=== PATIENT | male | born 1990 | race Caucasian/White ===

== ENCOUNTER 2018-12-12 03:43 | Emergency (ER) | payer OTHER ==
[~2018-12-12] VITALS: Ht 180.3 cm; Wt 78.6 kg
[2018-12-12] MEDS ORDERED: MORPHINE SULFATE 4 MG/ML, 1ML IVPush PRN (04:30)
[2018-12-12] MEDS ORDERED: KETOROLAC 30 MG/1 ML IVPush ONE (04:30)
[2018-12-12] MEDS ORDERED: ONDANSETRON 2MG/ML, 2ML IVPush ONE (04:30)
[2018-12-12 04:41] LABS: BASOPHILS # (AUTO) 0.04 x10^3/uL (0-0.1); BASOPHILS % (AUTO) 0 % (0-1); EOSINOPHILS # (AUTO) 0.09 x10^3/uL (0-0.4); EOSINOPHILS % (AUTO) 1 % (1-7); LYMPHOCYTES # (AUTO) 1.83 x10^3/uL (1-3.4); LYMPHOCYTES % (AUTO) 19 % (22-44); MD NO; MEAN CORPUSCULAR HEMOGLOBIN 32.4 pg (27.5-34.5); MEAN CORPUSCULAR HGB CONC 35.1 g/dL (33.2-36.2); MEAN CORPUSCULAR VOLUME 92.3 fL (81-97); MEAN PLATELET VOLUME 7.8 fL (7.4-10.4); MONOCYTES # (AUTO) 0.49 x10^3/uL (0.2-0.8); MONOCYTES % (AUTO) 5 % (2-9); NEUTROPHILS % (AUTO) 74 % (42-75); PLATELET COUNT 218 x10^3/uL (130-400); RED BLOOD COUNT 4.49 x10^6/uL (4.38-5.82); RED CELL DISTRIBUTION WIDTH 11.9 % (9.4-14.8)
[2018-12-12] MEDS ORDERED: KETOROLAC 30 MG/1 ML ONE (04:44)
[2018-12-12] MEDS ORDERED: MORPHINE SULFATE 4 MG/ML, 1ML ONE (04:44)
--- NOTE | 2018-12-12 04:45 | NUR ---
MICHELLE RN: IV ESTABLISHED. PT MEDICATED PER EMAR. 5 RIGHTS ADDRESSED.
[2018-12-12 04:50] LABS: ALANINE AMINOTRANSFERASE 58 U/L (12-78); ALBUMIN 4.1 g/dL (3.4-5.0); ANION GAP 10 mmol/L (5-15); CALCIUM 9.1 mg/dL (8.5-10.1); CHLORIDE 109 mmol/L (98-107); CREATININE 1.03 mg/dL (0.7-1.3)
[2018-12-12 04:53] LABS: ALKALINE PHOSPHATASE 56 U/L (45-117); BILIRUBIN,TOTAL 0.3 mg/dL (0.2-1.0); TOTAL PROTEIN 7.3 g/dL (6.4-8.2)
[2018-12-12] MEDS ORDERED: ONDANSETRON 2MG/ML, 2ML ONE (04:53)
--- NOTE | 2018-12-12 05:00 | NUR ---
PT TO CT.
[2018-12-12] MEDS ORDERED: SUMATRIPTAN PO (05:19)
[2018-12-12] MEDS ORDERED: TOPIRAMATE PO (05:19)
[2018-12-12] MEDS ORDERED: PROMETHAZINE PO (05:19)
[2018-12-12] MEDS ORDERED: VARE1TAB21 PO (05:19)
--- NOTE | 2018-12-12 05:19 | NUR ---
PT BACK FROM CT. PT ON VITALS MONITORS. PT IN [facility] GOWN. PT AWARE OF NEED FOR URINE SAMPLE. CUP AT BEDSIDE. CALL LIGHT WITHIN REACH.
--- NOTE | 2018-12-12 06:30 | NUR ---
PT ABLE TO PROVIDE URINE SAMPLE, PT DID NOT WANT STRAIGHT CATH. URINE SENT TO LAB.
[2018-12-12 06:49] LABS: MICROSCOPIC AUTO
[2018-12-12 06:51] LABS: CULTURE INDICATED? NO
--- NOTE | 2018-12-12 07:06 | NUR ---
BEDSIDE REPORT TO YUDI LANG
--- NOTE | 2018-12-12 07:15 | NUR ---
REPORT FROM ALEXIA LANG.
[2018-12-12 08:01] VITALS: BP 100/64
--- NOTE | 2018-12-12 08:01 | NUR ---
PT IS RESTING IN BED, WITH EYES CLOSED, RESPIRATIONS EQUAL AND NON LABORED. NAD. PT IS CONNECTED TO THE MONITOR. CALL LIGHT WITHIN REACH.
--- NOTE | 2018-12-12 08:10 | NUR ---
Patient given discharge instructions and they have confirmed that they understand the instructions. Patient ambulatory with steady gait.
== END 2018-12-12 08:16 | disposition home or self-care (01) ==
LOC: ED 06:42
DX: N13.2 Hydronephrosis with renal and ureteral calculous obstruction (principal)
CPT/HCPCS: 36415; 74176; 80053; 81001; 85025; 96374; 96375; 99284; J1885; J2405

== ENCOUNTER 2020-01-04 10:05 | Emergency (ER) | payer OTHER ==
[~2020-01-04] VITALS: Ht 180.3 cm; Wt 88.0 kg
[~2020-01-04 10:05] MED LIST: PROMETHAZINE PO; SUMATRIPTAN PO; TOPIRAMATE PO; VARE1TAB21 PO
--- NOTE | 2020-01-04 10:35 | NUR ---
PT PRESENTS TO ED WITH C/O STERNAL/EPIGASTRIC CHEST PRESSURE X 5 DAYS. PRESSURE WAS INITIALLY INTERMITTENT, NOW IS CONSTANT. PT REPORTS THAT PRESSURE IS WORSE WHEN LEANING FORWARD, WORSE WITH EXCERTION, ASSOC WITH SOB. PT DENIES COUGH, SORE THROAT, FEVER, OR RECENT TRAVEL. PT DENIES RECENT SICK CONTACTS. PT IS A&OX4, NEURO INTACT. PT ABLE TO SPEAK IN FULL SENTENCES WITHOUT DIFFIUCLTY. ALL MONITORS IN PLACE, NSR ON CCNA WITH NO ECTOPY. EKG TAKEN IN TRIAGE. AWAITING MD ASSESSMENT AND ORDERS AT THIS TIME.
--- NOTE | 2020-01-04 11:09 | NUR ---
pt resting on gurney, a&o, resps even and unlabored. pt speaking in full sentences. sinus tach rate 100's with no ectopy noted on career technical education teacher. awaiting MD and dispo.
[2020-01-04] MEDS ORDERED: MELO7.5T31 PO (11:12)
[2020-01-04] MEDS ORDERED: CHOL10003 PO (11:12)
[2020-01-04] MEDS ORDERED: topiramate PO (11:12)
[2020-01-04] MEDS ORDERED: meloxicam PO (11:12)
[2020-01-04] MEDS ORDERED: TOPI50TA8 PO (11:12)
--- NOTE | 2020-01-04 11:50 | NUR ---
LATE ENTRY DT PT CARE: REPORT GIVNE TO BREAK RICKEY VANCE.
[2020-01-04 12:28] LABS: HCT (SEDRATE) 45.4 % (39.2-51.8)
[2020-01-04 12:29] LABS: BASOPHILS # (AUTO) 0.03 x10^3/uL (0-0.1); BASOPHILS % (AUTO) 1 % (0-1); EOSINOPHILS # (AUTO) 0.09 x10^3/uL (0-0.4); EOSINOPHILS % (AUTO) 2 % (1-7); LYMPHOCYTES % (AUTO) 41 % (22-44); MD NO; MEAN CORPUSCULAR HEMOGLOBIN 32.3 pg (27.5-34.5); MEAN CORPUSCULAR HGB CONC 34.6 g/dL (33.2-36.2); MEAN CORPUSCULAR VOLUME 93.1 fL (81-97); MEAN PLATELET VOLUME 7.4 fL (7.4-10.4); MONOCYTES # (AUTO) 0.43 x10^3/uL (0.2-0.8); MONOCYTES % (AUTO) 9 % (2-9); NEUTROPHILS # (AUTO) 2.39 x10^3/uL (1.8-6.8); NEUTROPHILS % (AUTO) 48 % (42-75); PLATELET COUNT 230 x10^3/uL (130-400); RED BLOOD COUNT 4.86 x10^6/uL (4.38-5.82); RED CELL DISTRIBUTION WIDTH 12.5 % (9.4-14.8)
--- NOTE | 2020-01-04 12:29 | NUR ---
REPORT FROM RICKEY VANCE, THIS RN RESUMING CARE. AWAITING LABWORK AND DISPO AT THIS TIME.
[2020-01-04 12:37] LABS: ANION GAP 5 mmol/L (5-15); CALCIUM 9.1 mg/dL (8.5-10.1); CHLORIDE 110 mmol/L (98-107); CREATININE 0.91 mg/dL (0.7-1.3)
[2020-01-04 12:38] LABS: ALBUMIN 4.1 g/dL (3.4-5.0)
[2020-01-04 12:43] LABS: TROPONIN I < 0.015 ng/mL (0.000-0.045)
[2020-01-04] MEDS ORDERED: SODIUM CHLORIDE FLUSH 10ML SYR IVF ONE (13:00)
[2020-01-04] MEDS ORDERED: SODIUM CHLORIDE 0.9% 1,000ML IVBOLUS ONE (13:00)
--- NOTE | 2020-01-04 13:17 | NUR ---
PT REPORTS FEELING LIGHTHEADED AFTER STANDING UP FOR XRAY, BP 102/54. MD JEFFERSON NOTIFIED. INSTRUCTED RN TO START PIV AND BOLUS PT WITH 1 L NS. PIV ESTABLISHED, IVF INFUSING. PT A&O, RESPS EVEN AND UNLABORED, NADN AT THIS TIME.
--- NOTE | 2020-01-04 15:00 | NUR ---
pt to CT, pt a&o, resps even and unlabored, nsr on monitoring specialist with no ectopy. pt reports CP is unchanged at this time. pt awaiting troponin and CTA results at this time.
--- NOTE | 2020-01-04 15:11 | NUR ---
report given to RICKEY Miller, pt is still in CT at this time.
--- NOTE | 2020-01-04 15:16 | NUR ---
RECEIVED REPORT FROM HANH LANG. CARE ASSUMED, PT IN CT AT THIS TIME. FAMILY/FRIEND IN ROOM
[2020-01-04] MEDS ORDERED: OMNIPAQUE 350 MG/ML, 100ML BOTTLE ONE (15:27)
[2020-01-04 15:47] LABS: TROPONIN I < 0.015 ng/mL (0.000-0.045)
--- NOTE | 2020-01-04 15:52 | NUR ---
PT BACK FROM CT. RESTING IN POSITION OF COMFORT, SITTING UP AND CONVERSING WITH FREIND AT BEDSIDE. VSS. SR ON MONITOR. A&OX4. REPORTS "THE CHEST PRESSURE ACROSS MY CHEST AND THE LIGHTHEADED FEELING ARE SORT OF THE SAME, NOT MUCH HAS CHANGED, MAYBE A LITTLE DIFFERENCE AFTER FLUIDS." PT UP FOR RECHECK, DISCUSSED SYMPTOMS (CP/LIGHTHEADED) WITH DR. JEFFERSON, AWARE, NO NEW ORDERS RECEIVED, TO SEE PT AND DISCUSS POC PER PT REQUEST. CALL LIGHT IN REACH. FALL PRECUATIONS IN PLACE. DENIES NEED TO USE RESTROOM.
--- NOTE | 2020-01-04 16:30 | NUR ---
DR. JEFFERSON AT BEDSIDE FOR RECHECK, DISCUSSING DISCHARGE POC WITH PT
[2020-01-04 16:48] VITALS: BP 117/67
== END 2020-01-04 16:52 | disposition home or self-care (01) ==
LOC: ED 14:41
DX: R07.89 Other chest pain (principal); R11.0 Nausea; R06.02 Shortness of breath
CPT/HCPCS: 36415; 71046; 71275; 80048; 82040; 84484; 85025; 85651; 93005; 99285; J7030; Q9967

== ENCOUNTER 2020-01-05 10:41 | Emergency (ER) | payer OTHER ==
[~2020-01-05] VITALS: Ht 180.3 cm; Wt 89.6 kg
[~2020-01-05 10:41] MED LIST changes: +CHOL10003 PO; +MELO7.5T31 PO; +TOPI50TA8 PO; +meloxicam PO; +topiramate PO
[2020-01-05] MEDS ORDERED: KETOROLAC 30 MG/1 ML IM ONE (11:30)
--- NOTE | 2020-01-05 11:30 | NUR ---
THIS IS A 29 YO MALE WHO PRESENTS TO THE ER C/O STERNAL CP WITH SOB SINCE SATURDAY. PT REPORTS THE CP IS CONSTANT BUT THE PAIN LEVEL FLUCTUATES. PAIN DESCRIBED "PRESSURE" AND RATED AT 7/10. PT REPORTS PAIN IS WORSE WITH ACTIVITY, DEEP BREATHING, CERTAIN POSITIONS AND PALPATION. PT SEEN HERE YESTERDAY FOR SAME. PT RETURNED D/T PAIN STAYING THE SAME AND NO CHANGE. PT AO X 4. SKIN PWD. RESP EVEN AND UNLABORED. NSR 70'S NOTED ON DAY CARE WORKER. PT ON CONT BP, CARDIAC AND O2 MONITORS. CALL LIGHT WITHIN REACH. WILL CONT TO MONITOR PT.
[2020-01-05] MEDS ORDERED: ALBUTEROL/IPRATROPIUM 2.5MG/0.5MG, 3 ML ONE (11:49)
[2020-01-05] MEDS ORDERED: KETOROLAC 30 MG/1 ML ONE (11:56)
[2020-01-05] MEDS ORDERED: ALBUTEROL SULFATE 2.5 MG/3 ML ONE (11:57)
[2020-01-05] MEDS ORDERED: ALBUTEROL SULFATE 2.5 MG/3 ML NPPB ONE (12:00)
--- NOTE | 2020-01-05 12:00 | NUR ---
PT MEDICATED ORDERED FOR PAIN. PT RESTING ON GURNEY. NO ACUTE DISTRESS NOTED AT THIS TIME. PT PROVIDED WITH WARM BLANKET AND POSITIONED FOR COMFORT. PT NSR 70'S ON FIELD RESEARCH ASSISTANT. PT AO X 4. SKIN PWD. RESP EVEN AND UNLABORED. SIGNIFICANT OTHER AT BEDSIDE. PT AND S.O. AWARE WE ARE WAITING FOR LAB/IMAGING REUSLTS. PT DENIES ADDITIONAL NEEDS AT THIS TIME. CALL LIGHT WITHIN REACH. WILL CONT TO MONITOR PT.
[2020-01-05 12:16] LABS: TROPONIN I < 0.015 ng/mL (0.000-0.045)
[2020-01-05] MEDS ORDERED: DEXAMETHASONE 4 MG TABLET PO ONE (12:30)
[2020-01-05] MEDS ORDERED: DEXAMETHASONE 4 MG TABLET ONE (13:39)
--- NOTE | 2020-01-05 13:45 | NUR ---
PT MEDICATED ORDERED. PT REPORTS RELIEF OF PAIN AT THIS TIME. PT ON CONT BP, CARDIAC AND O2 MONITORS. PT AO X4. SKIN PWD. RESP EVEN AND UNLABORED. PT AND SIGNIFICANT OTHER VERBALIZE UNDERSTANDING OF DISCUSSION OF RESULTS/POC BY NIKKI VUONG.
[2020-01-05 14:46] VITALS: BP 102/58
== END 2020-01-05 14:48 | disposition home or self-care (01) ==
LOC: ED 14:30
DX: R07.89 Other chest pain (principal); J98.01 Acute bronchospasm; R11.0 Nausea; Z88.2 Allergy status to sulfonamides
CPT/HCPCS: 36415; 83880; 84484; 93005; 94640; 96372; 99285; J1885; J7613

== ENCOUNTER 2020-02-02 14:23 | Emergency (ER) | payer OTHER ==
[~2020-02-02] VITALS: Ht 182.9 cm; Wt 87.0 kg
--- NOTE | 2020-02-02 15:26 | NUR ---
ASSUMED CARE OF STEPHEN. PATIENT REPORTS HE HAS HAD ELEVATED LIVER ENZYMES. PT HAS BEEN SEENING A PRIMARY DOCTOR. PT REPORTS THAT HIS US WAS RECENTLY CANCLED AND HIS DOCTOR WANTS HIM TO COME TO THE ER FOR A US OF HIS LIVER. VS STABLE. NO ACUTE DISTRESS NOTED. CALL LIGHT IN PLACE. WILL CONTINUE TO MONITOR.
[2020-02-02 15:30] LABS: BASOPHILS # (AUTO) 0.07 x10^3/uL (0-0.1); BASOPHILS % (AUTO) 1 % (0-1); EOSINOPHILS # (AUTO) 0.15 x10^3/uL (0-0.4); EOSINOPHILS % (AUTO) 3 % (1-7); LYMPHOCYTES # (AUTO) 2.26 x10^3/uL (1-3.4); LYMPHOCYTES % (AUTO) 38 % (22-44); MD NO; MEAN CORPUSCULAR HEMOGLOBIN 32.7 pg (27.5-34.5); MEAN CORPUSCULAR HGB CONC 34.3 g/dL (33.2-36.2); MEAN CORPUSCULAR VOLUME 95.3 fL (81-97); MEAN PLATELET VOLUME 7.1 fL (7.4-10.4); MONOCYTES % (AUTO) 10 % (2-9); NEUTROPHILS # (AUTO) 2.85 x10^3/uL (1.8-6.8); NEUTROPHILS % (AUTO) 48 % (42-75); PLATELET COUNT 268 x10^3/uL (130-400); RED BLOOD COUNT 5.14 x10^6/uL (4.38-5.82); RED CELL DISTRIBUTION WIDTH 12.9 % (9.4-14.8)
[2020-02-02] MEDS ORDERED: SODIUM CHLORIDE FLUSH 10ML SYR IVF ONE (15:30)
[2020-02-02 15:44] LABS: ALANINE AMINOTRANSFERASE 215 U/L (12-78); ALBUMIN 4.3 g/dL (3.4-5.0); ANION GAP 7 mmol/L (5-15); CALCIUM 9.8 mg/dL (8.5-10.1); CHLORIDE 108 mmol/L (98-107)
[2020-02-02 15:47] LABS: ALKALINE PHOSPHATASE 56 U/L (45-117); BILIRUBIN,TOTAL 0.4 mg/dL (0.2-1.0); TOTAL PROTEIN 8.2 g/dL (6.4-8.2)
[2020-02-02 15:51] LABS: INTERNATIONAL NORMALIZED RATIO 0.93 (0.93-1.1); PROTHROMBIN TIME 9.9 Seconds (9.6-11.5)
--- NOTE | 2020-02-02 16:53 | NUR ---
DR JEFFERSON IN ROOM UPDATING PATIENT.
[2020-02-02 17:16] LABS: CULTURE INDICATED? NO; MICROSCOPIC NOT IND
[2020-02-02 17:39] VITALS: BP 132/76
[2020-02-04 14:03] LABS: ANA SCREEN NEGATIVE (Negative)
== END 2020-02-02 17:59 | disposition home or self-care (01) ==
LOC: ED 17:17
DX: K76.0 Fatty (change of) liver, not elsewhere classified (principal); R94.5 Abnormal results of liver function studies
CPT/HCPCS: 36415; 76700; 80053; 81003; 83516; 83690; 85025; 85610; 86038; 86160; 86225; 86235; 86255; 86256; 86376; 86431; 99284

== ENCOUNTER 2020-04-01 09:30 | Outpatient (CLI) | payer OTHER | END 2020-04-01 23:59 | disposition home or self-care (01) | LOC: STAR 09:30 | PROVIDERS: ATTEND Internal Medicine | DX: Z11.59 Encounter for screening for other viral diseases (principal) | CPT/HCPCS: U0001-CS ==

== ENCOUNTER 2020-04-05 06:40 | Day surgery (SDC) | payer OTHER ==
[~2020-04-05] VITALS: Ht 180.3 cm; Wt 88.0 kg
[2020-04-05 06:51] VITALS: BP 132/84
[2020-04-05] MEDS ORDERED: LACTATED RINGERS 1,000 ML IV SCH (06:52)
[2020-04-05] MEDS ORDERED: CHLORHEXIDINE 15 ML UDC MM ONE (07:00)
[2020-04-05] MEDS ORDERED: MIDAZOLAM 1 MG/ML, 2ML ONE (07:23)
[2020-04-05] MEDS ORDERED: PROPOFOL 10 MG/ML, 50ML ONE (07:49)
[2020-04-05] MEDS ORDERED: OXYcodone 5 MG/5 ML ORAL.SOL UDC PO PRN (08:00)
[2020-04-05] MEDS ORDERED: FENTANYL PF 100 MCG/2ML IV PRN (08:00)
[2020-04-05] MEDS ORDERED: ONDANSETRON 2MG/ML, 2ML IVPush PRN (08:00)
[2020-04-05] MEDS ORDERED: FENTANYL PF 100 MCG/2ML ONE (09:03)
== END 2020-04-05 10:20 | disposition home or self-care (01) ==
LOC: OUT 06:40
PROVIDERS: ATTEND Internal Medicine
DX: K62.89 Other specified diseases of anus and rectum (principal); K62.1 Rectal polyp; F41.9 Anxiety disorder, unspecified; G43.909 Migraine, unspecified, not intractable, without status migrainosus; M06.9 Rheumatoid arthritis, unspecified; M19.90 Unspecified osteoarthritis, unspecified site; Z79.1 Long term (current) use of non-steroidal anti-inflammatories (NSAID); Z79.899 Other long term (current) drug therapy; Z88.2 Allergy status to sulfonamides; Z98.890 Other specified postprocedural states
CPT/HCPCS: 45338; 45341; 88305; J2250; J2704; J3010; J7120

== ENCOUNTER 2020-09-05 21:24 | Emergency (ER) | payer OTHER ==
[~2020-09-05] VITALS: Ht 180.3 cm; Wt 82.0 kg
[2020-09-05] MEDS ORDERED: ONDANSETRON ODT 4 MG PO ONE (21:30)
[2020-09-05] MEDS ORDERED: SODIUM CHLORIDE 0.9% 1,000ML IVBOLUS ONE (23:30)
[2020-09-05] MEDS ORDERED: ONDANSETRON 2MG/ML, 2ML IVPush ONE (23:30)
[2020-09-05] MEDS ORDERED: MAALOX/HYOSCYAMINE/LIDOCAINE 45 ML BTL PO ONE (23:30)
[2020-09-05 23:31] LABS: BASOPHILS % (AUTO) 1 % (0-1); EOSINOPHILS % (AUTO) 1 % (1-7); LYMPHOCYTES % (AUTO) 25 % (22-44); MEAN CORPUSCULAR HEMOGLOBIN 32.4 pg (27.5-34.5); MEAN CORPUSCULAR HGB CONC 34.6 g/dL (33.2-36.2); MEAN PLATELET VOLUME 7.7 fL (7.4-10.4); MONOCYTES % (AUTO) 7 % (2-9); NEUTROPHILS % (AUTO) 66 % (42-75); PLATELET COUNT 243 x10^3/uL (130-400); RED BLOOD COUNT 4.99 x10^6/uL (4.38-5.82); RED CELL DISTRIBUTION WIDTH 12.4 % (9.4-14.8)
[2020-09-05 23:38] LABS: MD NO
[2020-09-05 23:42] LABS: ALANINE AMINOTRANSFERASE 261 U/L (12-78); ALBUMIN 4.5 g/dL (3.4-5.0); ANION GAP 8 mmol/L (5-15); CALCIUM 9.5 mg/dL (8.5-10.1); CHLORIDE 104 mmol/L (98-107); CREATININE 0.86 mg/dL (0.7-1.3)
[2020-09-05 23:45] LABS: ALKALINE PHOSPHATASE 54 U/L (45-117); BILIRUBIN,TOTAL 0.7 mg/dL (0.2-1.0); TOTAL PROTEIN 8.4 g/dL (6.4-8.2)
[2020-09-05] MEDS ORDERED: ONDANSETRON 2MG/ML, 2ML ONE (23:48)
[2020-09-05] MEDS ORDERED: MAALOX/HYOSCYAMINE/LIDOCAINE 45 ML BTL ONE (23:48)
--- NOTE | 2020-09-06 00:26 | NUR ---
A&o x4, answering questions appropriately. States sudden onset fatigue with N/V/D at approx 1800 this evening. States significant vomiting x1 hour and subsequent dry heaves/nausea. No tenderness noted. Denies hx of similar sx
[2020-09-06 01:45] VITALS: BP 117/71
== END 2020-09-06 01:48 | disposition home or self-care (01) ==
LOC: ED 23:26
DX: K21.00 Gastro-esophageal reflux disease with esophagitis, without bleeding (principal); Z87.891 Personal history of nicotine dependence
CPT/HCPCS: 36415; 80053; 83690; 85025; 96361; 96374; 99283; J2405; J7030; Q0162; 96375

== ENCOUNTER 2020-11-28 16:36 | Emergency (ER) | payer OTHER ==
[~2020-11-28] VITALS: Ht 180.3 cm; Wt 90.2 kg
--- NOTE | 2020-11-28 17:42 | NUR ---
BREAK RN: PT VSS NOTED. CALL LIGHT W/I REACH. PCXR RESULTS PENDING, PT AWARE. NAD NOTED.
[2020-11-28 18:18] VITALS: BP 112/70
== END 2020-11-28 18:24 | disposition home or self-care (01) ==
LOC: ED 17:14
DX: J18.9 Pneumonia, unspecified organism (principal); R00.0 Tachycardia, unspecified; Z87.891 Personal history of nicotine dependence; Z88.2 Allergy status to sulfonamides; G43.909 Migraine, unspecified, not intractable, without status migrainosus; R06.02 Shortness of breath
CPT/HCPCS: 71045; 93005; 99283

== ENCOUNTER → 2021-04-05 | Outpatient (CLI) | payer OTHER | END | disposition home or self-care (01) | LOC: CFH 15:12 | PROVIDERS: ATTEND Internal Medicine | DX: R06.02 Shortness of breath (principal) | CPT/HCPCS: 71250 ==

== ENCOUNTER 2021-05-05 06:02 | Emergency (ER) | payer OTHER ==
[~2021-05-05] VITALS: Ht 180.3 cm; Wt 95.0 kg
--- NOTE | 2021-05-05 06:10 | NUR ---
INITIAL PT CONTACT. PT PRESENTS TO ED C/O LEFT LOWER QUAD ABD PAIN THAT WOKE HIM OUT OF SLEEP LAST NIGHT. PT ALSO C/O NAUSEA AND VOMITING. HX OF KIDNEY STONES. PT DENIES ANY URINARY SYMPTOMS OR LOWER BACK PAIN. "IT DOESN'T FEEL LIKE MY NORMAL KIDNEY STONE PAIN IT'S A LOT WORSE AND SUPER SHARP PAIN ALL OF A SUDDEN." PT SITTING UPRIGHT ON GURNEY, VSS. PT PLACED ON CONTINUOUS MONITORING. CALL LIGHT AND BELONGINGS WITHIN REACH. SIGNIFICANT OTHER AT BEDSIDE. AWAITING ERP.
[2021-05-05] MEDS ORDERED: MORPHINE SULFATE 4 MG/ML, 1ML IVPush PRN (06:30)
[2021-05-05] MEDS ORDERED: SODIUM CHLORIDE FLUSH 10ML SYR IVF ONE (06:30)
[2021-05-05] MEDS ORDERED: KETOROLAC 30 MG/1 ML IVPush ONE (06:30)
[2021-05-05] MEDS ORDERED: ONDANSETRON 2MG/ML, 2ML IVPush ONE (06:30)
[2021-05-05] MEDS ORDERED: SODIUM CHLORIDE 0.9% 1,000ML IVBOLUS ONE (06:30)
[2021-05-05] MEDS ORDERED: MORPHINE SULFATE 4 MG/ML, 1ML ONE (06:36)
[2021-05-05] MEDS ORDERED: KETOROLAC 30 MG/1 ML ONE (06:36)
[2021-05-05] MEDS ORDERED: ONDANSETRON 2MG/ML, 2ML ONE (06:36)
--- NOTE | 2021-05-05 06:47 | NUR ---
PT TO CT
--- NOTE | 2021-05-05 06:48 | NUR ---
REPORT FROM ROSE LANG, PLAN OF CARE DISCUSSED. PT IN CT
[2021-05-05 06:49] LABS: BASOPHILS % (AUTO) 1 % (0-1); EOSINOPHILS % (AUTO) 1 % (1-7); LYMPHOCYTES % (AUTO) 16 % (22-44); MEAN CORPUSCULAR HEMOGLOBIN 32.4 pg (27.5-34.5); MEAN CORPUSCULAR HGB CONC 34.7 g/dL (33.2-36.2); MEAN PLATELET VOLUME 7.9 fL (7.4-10.4); MONOCYTES % (AUTO) 6 % (2-9); NEUTROPHILS % (AUTO) 77 % (42-75); PLATELET COUNT 257 x10^3/uL (130-400); RED CELL DISTRIBUTION WIDTH 12.5 % (9.4-14.8)
--- NOTE | 2021-05-05 06:52 | NUR ---
REPORT GIVEN TO RAJIV LANG
[2021-05-05 06:57] LABS: ALBUMIN 4.6 g/dL (3.4-5.0); ANION GAP 9 mmol/L (5-15); CALCIUM 9.7 mg/dL (8.5-10.1); CHLORIDE 106 mmol/L (98-107); CREATININE 1.02 mg/dL (0.7-1.3)
--- NOTE | 2021-05-05 07:11 | NUR ---
PT BACK, STATES, PAIN IS BETTER. PT VERBALIZED NO NEEDS AT THIS TIME.
--- NOTE | 2021-05-05 07:38 | NUR ---
WATER GIVEN OK PER MD. EXPLAINED NEED FOR UA, PT VERBALIZED UNDERSTANDING
[2021-05-05 08:18] LABS: MICROSCOPIC INDICATED
--- NOTE | 2021-05-05 08:51 | NUR ---
CARE FOR DC ONLY PROVIDED. PT SITTING ON GURNEY, NO ACUTE DISTRESS NOTED. PAIN DECREASED TO 5/10. IV DC'D WITH CANNULA INTACT. REVIEWED DC INSTRUCTIONS WITH PT, UNDERSTANDING VERBALIZED. PT LEFT AMB.
[2021-05-05 08:53] VITALS: BP 111/66
== END 2021-05-05 08:55 | disposition home or self-care (01) ==
LOC: ED 08:45
DX: N13.2 Hydronephrosis with renal and ureteral calculous obstruction (principal); K21.9 Gastro-esophageal reflux disease without esophagitis; Z87.891 Personal history of nicotine dependence
CPT/HCPCS: 36415; 74176; 80048; 81001; 82040; 85025; 96374; 96375; 99284; J1885; J2270; J2405; J7030